=== PATIENT | male | born 1970 | race Caucasian/White ===

== ENCOUNTER 2020-03-18 15:53 | Emergency (ER) | payer SELFPAY ==
[2020-03-18 15:57] VITALS: BP 130/84; PULSE 71; RESP 20; TEMP 36.7; O2SAT 98; BMI 21.5
--- NOTE | 2020-03-18 16:28 | ED_ITS ---
HPI - Skin/Abscess/Foreign Bdy General: Chief complaint: Skin/Abscess/Foreign Body Stated complaint: foot pain Time Seen by Provider: 03/18/20 16:25 History of Present Illness: HPI narrative: Patient is a 50-year-old male who comes to the ED with skin lesion on right foot. Patient says it started off as very itchy skin on the right foot approximately 2 weeks ago. Now he is having warmth, redness and tenderness over the skin on the right foot. Denies any fevers chills, nausea/vomiting, abdominal pain, bladder or bowel symptoms. Associated symptoms: Deny chills, fever(s), nausea or vomiting Review of Systems Const: Denies: fever(s), chills or fatigue Eyes: Denies: change in vision or eye discomfort ENMT: Denies: throat pain, odynophagia, nasal discharge or nasal congestion Card: Denies: chest pain, palpitations, edema, swelling of feet/ankles, dyspnea on exertion or orthopnea Resp: Denies: dyspnea, productive cough or non-productive cough GI: Denies: abdominal pain, nausea, vomiting, diarrhea, constipation or h ematochezia : Denies: flank pain, difficulty urinating, dysuria or hematuria Musc: Denies: neck pain, back pain or extremity swelling Skin/Breast: Reports: new lesions (Right foot lesion); Denies: rash Neuro: Denies: headache(s), numbness in extremities or weakness in extremities Physical Exam Const: COMMON NORMALS: no acute distress and patient oriented x3 GENERAL APPEARANCE: cooperative and comfortable HENMT: COMMON NORMALS: normocephalic HEAD & SCALP: normocephalic MOUTH: Normal oral and palatal mucosa present THROAT: posterior oropharynx normal and uvula midline Neck/C-Spine: COMMON NORMALS: supple GENERAL: Yes normal visual inspection Resp: COMMON NORMALS: normal respiratory effort, No retractions, No use of accessory muscles and clear to auscultation bilaterally AUSCULTATION: clear to auscultation bilaterally Cardio: COMMON NORMALS: regular rate, regular rhythm, S1 normal heart sound present, S2 normal heart sound present, No gallops present (Cardio), No clicks present (Cardio), No murmurs present (Cardio) and Peripheral pulses 2+ throughout RATE: regular rate RHYTHM: regular rhythm HEART SOUNDS: S1 normal heart sound present and S2 normal heart sound present PERIPHERAL PULSES: Peripheral pulses 2+ throughout GI: COMMON NORMALS: Normal to inspection, nondistended, normoactive bowel sounds present, Soft to palpation, non-tender and no masses PALPATION: Yes Soft to palpation : COMMON NORMALS: Yes no CVA tenderness BLADDER/KIDNEY EXAM: Yes no CVA tenderness Back/Pelvis: COMMON NORMALS: no CVA tenderness Extremity: COMMON NORMALS: no pedal edema GENERAL: Yes normal exam except as noted RIGHT LOWER EXTREMITY: Yes foot & digits Right foot and digits: Yes inspection (Patient has pruritic and erythematous lesion on right foot. Some parts of the rash have warmth and tenderness to palpation.) Neuro: COMMON NORMALS: patient oriented x3 and moves all extremities Skin: NARRATIVE SKIN EXAM: Patient has pruritic and erythematous lesion on right foot. Some parts of the rash have warmth and tenderness to palpation. No palpable abscess or visible drainage. Rash/lesion appears to have some contact dermatitis along with cellulitis present. Course Vital Signs: Vital signs: Vital Signs Temperature 98.0 F 03/18/20 15:57 Pulse Rate 68 03/18/20 17:20 Respiratory Rate 14 03/18/20 17:20 Blood Pressure 132/88 03/18/20 17:20 Pulse Oximetry 99 03/18/20 17:20 MDM - Skin/Abscess/Foreign Bdy MDM Narrative: Medical decision making narrative: Patient is a 50-year-old male who comes to the ED with rash/lesion on right foot. Exam showed a pruritic contact dermatitis rash with some erythema, warmth and tenderness as well, suggestive of cellulitis present. Patient diagnosed with cellulitis and contact dermatitis. He was discharged and given a prescription for Bactrim and Medrol Dosepak. He was told to follow-up with his PCP in 5 to 7 days for reevaluation. Return to ED if symptoms worsen. Patient understood and agreed with plan. Discharge Plan Discharge Patient Disposition: Home Clinical Impression: Cellulitis Qualifiers: Site of cellulitis: extremity Site of cellulitis of extremity: lower extremity Laterality: right Qualified Code(s): L03.115 - Cellulitis of right lower limb Contact dermatitis Qualifiers: Contact dermatitis type: unspecified Contact dermatitis trigger: unspecified trigger Qualified Code(s): L25.9 - Unspecified contact dermatitis, unspecified cause Condition: Stable Prescriptions: New Bactrim DS 800-160 mg tablet 1 tab PO BID 7 Days Qty: 14 RF: 0 Medrol (Palomo) 4 mg tablets,dose pack See Rx Instructions .ROUTE .COMPLEX Qty: 21 RF: 0 Discharge Orders: Discharge Order (Routine); Ordered 03/18/20 Ordered By: Umesh Curiel Referrals: Krista Rodriguez DO [Primary Care Provider] - Discharge Diet: Regular Discharge Activity: Resume usual activity Patient Instructions: Contact Dermatitis (ED), Cellulitis (ED) Activity Restrictions/Additional Instructions: Follow-up with medical provider as directed in 7 days. Take medications as prescribed. Return to the ER or your medical provider if condition worsens. Please read and understand discharge instructions. If any questions, please ask. Discharge Date/Time: 03/18/20 17:20 Coding Level of Care Code ED Oracle Applications Developer for Aleks Cleary Exam Comprehensive
[2020-03-18] MEDS: sulfamethoxazole-trimeth DS 160-800 mg Tablet 1 TAB PO (17:17)
[2020-03-18] MEDS: predniSONE 20 mg Tablet 60 MG PO (17:17)
[2020-03-18 17:20] VITALS: BP 132/88; PULSE 68; RESP 14; O2SAT 99
== END 2020-03-18 17:20 | disposition home or self-care (01) ==
PROVIDERS: Emergency Provider Physician Assistant; PCP Family Medicine
DX: L03.115 Cellulitis of right lower limb (principal); L25.9 Unspecified contact dermatitis, unspecified cause
CPT/HCPCS: 12345; 99281; 99283; J7512

== ENCOUNTER 2021-05-12 18:36 | Emergency (ER) | payer SELFPAY ==
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
[2021-05-12 18:50] VITALS: BP 132/84; PULSE 80; RESP 16; TEMP 37; O2SAT 97
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
[2021-05-12 19:54] VITALS: BP 142/87; PULSE 72; RESP 14; O2SAT 94
== END 2021-05-12 20:08 | disposition home or self-care (01) ==
PROVIDERS: Emergency Provider Nurse Practitioner Family; PCP Family Medicine
DX: S20.212A Contusion of left front wall of thorax, initial encounter (principal); J98.01 Acute bronchospasm; V89.2XXA Person injured in unspecified motor-vehicle accident, traffic, initial encounter
CPT/HCPCS: 71101; 99282

== ENCOUNTER → 2021-05-28 09:04 | Outpatient (BNVA) | payer OTHER, SELFPAY | PROVIDERS: PCP Family Medicine; Visit Provider Nurse Practitioner Family | DX: Z20.822 Contact with and (suspected) exposure to COVID-19 (principal) | CPT/HCPCS: 87635 ==

== ENCOUNTER → 2021-07-10 10:50 | Outpatient (BNVA) | payer OTHER, SELFPAY | PROVIDERS: PCP Family Medicine; Visit Provider Nurse Practitioner Family | DX: Z20.822 Contact with and (suspected) exposure to COVID-19 (principal) | CPT/HCPCS: 87635 ==

== ENCOUNTER → 2021-09-18 09:41 | Outpatient (BNVA) | payer OTHER, SELFPAY | PROVIDERS: PCP Family Medicine; Visit Provider Nurse Practitioner Family | DX: Z20.822 Contact with and (suspected) exposure to COVID-19 (principal) | CPT/HCPCS: 87635 ==

== ENCOUNTER 2022-03-17 19:48 | Emergency (ER) | payer SELFPAY ==
[2022-03-17 19:57] VITALS: BP 119/73; PULSE 86; RESP 20; TEMP 37; O2SAT 98
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
--- NOTE | 2022-03-17 21:43 | CTR_ITS ---
PROCEDURE INFORMATION: Exam: CT Abdomen And Pelvis With Contrast Exam date and time: 03/17/2022 9:58 PM Age: 52 years old Clinical indication: Prior surgery; Surgery type: RT hip; Patient HX: C/O fever with back pain and increased urinary output. ; Additional info: Abd pain TECHNIQUE: Imaging protocol: Computed tomography of the abdomen and pelvis with contrast. Radiation optimization: All CT scans at this facility use at least one of these dose optimization techniques: automated exposure control; mA and/or kV adjustment per patient size (includes targeted exams where dose is matched to clinical indication); or iterative reconstruction. Contrast material: OMNI 350; Contrast volume: 95 ml; Contrast route: INTRAVENOUS (IV); COMPARISON: CT Abdomen/Pelvis Renal [id number] 09/30/2018 2:14 AM RADIATION DOSE METRICS: Total DLP (mGy-cm): 792.16 FINDINGS: Liver: Normal. No mass. Gallbladder and bile ducts: Mild dilatation of the intrahepatic biliary tree without dilated common bile duct. Pancreas: Normal. No ductal dilation. Spleen: Calcified splenic granulomas. Adrenal glands: Normal. No mass. Kidneys and ureters: Normal. No hydronephrosis. Stomach and bowel: Unremarkable. No obstruction. No mucosal thickening. Appendix: No evidence of appendicitis. Intraperitoneal space: Unremarkable. No free air. No significant fluid collection. Vasculature: Calcification of the abdominal aorta and/or iliac arteries consistent with atherosclerotic vessel disease. Lymph nodes: Unremarkable. No enlarged lymph nodes. Urinary bladder: Unremarkable as visualized. Reproductive: Unremarkable as visualized. Bones/joints: Metallic fixation of the right hip with metallic artifact. Soft tissues: Unremarkable. CT/CT abdomen pelvis w con* [id number] IMPRESSION: Mild dilatation of the intrahepatic biliary tree without dilated common bile duct.
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
[2022-03-17] MEDS: iohexol 350 mg/mL 100 mL Btl IV (21:57)
[2022-03-17 22:05] LABS: Basophils # 0.1 10^3/uL (0.0-0.1); Basophils % 0.9 %; Eosinophils # 0.2 10^3/uL (0.0-0.8); Eosinophils % 2.2 %; Hematocrit 48.1 % (42.0-52.0); Hemoglobin 15.8 g/dL (11.7-16.6); Lymphocytes # 2.1 10^3/uL (0.8-4.8); Lymphocytes % 22.8 %; Mean Corpuscular HGB Conc 32.8 g/dL (30.0-36.0); Mean Corpuscular Hemoglobin 29.2 pg (28.0-34.0); Mean Corpuscular Volume 88.9 fl (80-94); Mean Platelet Volume 9.5 fL (7.4-10.4); Monocytes # 1.4 10^3/uL (0.2-0.9); Monocytes % 14.5 %; Neutrophils # 5.54 10^3/uL (1.8-7.7); Neutrophils % 59.3 %; Nucleated Red Blood Cells % 0 %; Platelet Count 363 10^3/cmm (130-400); Red Blood Count 5.41 10^6/uL (4.1-5.3); Red Cell Distribution Width 13.2 % (12.1-15.1); White Blood Count 9.4 10^3/uL (4.0-10.0)
[2022-03-17] MEDS: sodium chloride 0.9% 1,000 ML 999 ML IV (22:19)
[2022-03-17 22:31] LABS: Alanine Aminotransferase 14 U/L (0-41); Albumin Level 4.6 g/dL (3.5-5.2); Alkaline Phosphatase 115 IU/L (40-130); Anion Gap 14.1 (5-19); Aspartate Amino Transferase 21 U/L (0-40); Blood Urea Nitrogen 14 mg/dL (6-20); Calcium 9.4 mg/dL (8.5-10.5); Carbon Dioxide 26 mmol/L (22-29); Chloride 102 mmol/L (98-107); Creatinine Clr Calc Pharmacy 122.2005; Glomerular Filtration Rate 118.9 mL/min (90-130); Glucose 68 mg/dL (65-115); Lipase 289 U/L (13-60); Osmolality Calculated 285 mOsm/kg (285-295); Potassium 4.1 mmol/L (3.5-5.1); Sodium 138 mmol/L (136-145); Total Bilirubin 0.3 mg/dL (0.15-1.2); Total Protein 7.6 g/dL (6.6-8.7)
[2022-03-17 22:52] LABS: Add Urine Microscopic? NO; Charge for UA Resulting for Rev
[2022-03-17 23:04] LABS: Bilirubin Urine Neg (Negative); Blood Urine Neg (Negative); Glucose Urine UA Norm (Normal); Ketones Urine Negative (Negative); Leukocyte Esterase Urine Negative (Negative); Nitrate Urine Negative (Negative); Protein Urine Neg (Negative); Urine Appearance Clear (CLEAR); Urine Color Yellow (Yellow); Urobilinogen Urine Norm (Negative); pH Urine 6 (5-7)
[2022-03-17 23:29] VITALS: BP 140/81; PULSE 70; RESP 16; O2SAT 99
[2022-03-17 23:37] VITALS: BP 140/81; PULSE 72; RESP 16; O2SAT 99
--- NOTE | 2022-03-18 07:34 | DCPLANNER ---
Addendum entered by Jerrica Peña 04/17/22 12:22: Patient had a follow up appointment scheduled for 04.15.22 with urology - patient did not attend appointment. Addendum entered by Jerrica Peña 03/24/22 12:17: Patient has a follow up appointment scheduled for Wednesday, April 15, 2022 at 1:15 with Shauna Sullivan at urology. Clinic will call patient with appointment information. Original Note: accounting manager had message to schedule a follow up appointment for patient with urology. accounting manager sent patients information to the front office staff at urology. Patients information will be printed and reviewed. Clinic will call patient with appointment information.
== END 2022-03-17 23:41 | disposition home or self-care (01) ==
PROVIDERS: Nurse Practitioner Family; Emergency Provider Emergency Medicine; PCP Family Medicine
DX: R10.9 Unspecified abdominal pain (principal); R35.0 Frequency of micturition; F17.210 Nicotine dependence, cigarettes, uncomplicated
CPT/HCPCS: 71045; 74177; 80053; 81003; 83690; 85025; 96360; 99285; J7030; Q9967

== ENCOUNTER 2022-12-29 12:26 | Emergency (ER) | payer SELFPAY ==
[2022-12-29 12:47] VITALS: BP 155/90; PULSE 74; RESP 16; TEMP 36.8; O2SAT 100
[2022-12-29 12:51] VITALS: BP 128/84; PULSE 68; RESP 16; O2SAT 97
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
[2022-12-29 14:51] LABS: Basophils # 0.1 10^3/uL (0.0-0.1); Basophils % 1.3 %; Eosinophils # 0.2 10^3/uL (0.0-0.8); Eosinophils % 2.7 %; Hematocrit 50.8 % (42.0-52.0); Hemoglobin 16.4 g/dL (11.7-16.6); Lymphocytes # 2.2 10^3/uL (0.8-4.8); Lymphocytes % 33.9 %; Mean Corpuscular HGB Conc 32.3 g/dL (30.0-36.0); Mean Corpuscular Hemoglobin 28.5 pg (28.0-34.0); Mean Corpuscular Volume 88.2 fl (80-94); Mean Platelet Volume 9.4 fL (7.4-10.4); Monocytes % 16.4 %; Neutrophils % 45.5 %; Nucleated Red Blood Cells % 0 %; Platelet Count 375 10^3/cmm (130-400); Red Blood Count 5.76 10^6/uL (4.1-5.3); White Blood Count 6.4 10^3/uL (4.0-10.0)
[2022-12-29 15:33] LABS: Alanine Aminotransferase 11 U/L (0-41); Albumin Level 4.5 g/dL (3.5-5.2); Alkaline Phosphatase 85 U/L (40-130); Anion Gap 14.4 (5-19); Aspartate Amino Transferase 16 U/L (0-40); Blood Urea Nitrogen 15 mg/dL (6-20); Calcium 9.3 mg/dL (8.5-10.5); Carbon Dioxide 27 mmol/L (22-29); Chloride 103 mmol/L (98-107); Glomerular Filtration Rate 101.9 mL/min (90-130); Glucose 86 mg/dL (65-115); NT Pro B Type Natriuretic Pept 36 pg/mL (0-125); Osmolality Calculated 290 mOsm/kg (285-295); Potassium 4.4 mmol/L (3.5-5.1); Sodium 140 mmol/L (136-145); Total Bilirubin 0.3 mg/dL (0.15-1.2); Total Protein 7.5 g/dL (6.6-8.7)
[2022-12-29 16:00] VITALS: BP 128/84; RESP 18; O2SAT 97
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
--- NOTE | 2022-12-29 16:24 | ECG_ITS ---
[facility] Test Date: 2022-12-29 Pat Name: Todd Puckett Jr Department: Room: Gender: Male Manager Business Intelligence: : 1970 Requested By: Isidro Lerma Order Number: [id number] Jame MD: Veto Kirk M.D. Measurements Intervals [place] Rate: 64 P: 63 SD: 148 QRS: 92 QRSD: 125 T: 67 QT: 401 QTc: 417 Interpretive Statements SINUS RHYTHM BORDERLINE RIGHT AXIS DEVIATION [QRS AXIS > 90] POSSIBLE RIGHT VENTRICULAR CONDUCTION DELAY [RSR (QR) IN V1/V2] No previous ECG available for comparison Electronically Signed On 12-29-2022 16:46:46 CDT by Veto Kirk M.D. [id number]
[2022-12-29 17:12] LABS: D Dimer 0.32 ug/mIFEU (0-0.59)
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
--- NOTE | 2022-12-29 17:15 | CTR_ITS ---
PROCEDURE INFORMATION: Exam: CT Head Without Contrast Exam date and time: 12/29/2022 7:19 PM Age: 52 years old Clinical indication: Pain; Headache not specified; Additional info: Headaches, confusion TECHNIQUE: Imaging protocol: Computed tomography of the head without contrast. Radiation optimization: All CT scans at this facility use at least one of these dose optimization techniques: automated exposure control; mA and/or kV adjustment per patient size (includes targeted exams where dose is matched to clinical indication); or iterative reconstruction. REPORTING DATA: Count of CT and Cardiac NM exams in prior 12 months: This patient has received [address] and 0 known cardiac nuclear medicine studies in the 12 months prior to the current study. COMPARISON: CT head wo con* [id number] 04/01/2019 4:26 AM RADIATION DOSE METRICS: Total DLP (mGy-cm): 250 FINDINGS: Brain: Normal. No hemorrhage. Unremarkable white matter. No mass effect. Cerebral ventricles: No ventriculomegaly. Paranasal sinuses: Visualized sinuses are unremarkable. No fluid levels. Mastoid air cells: Visualized mastoid air cells are well aerated. Bones/joints: Unremarkable. No acute fracture. Soft tissues: Unremarkable. CT/CT head wo con* [id number] IMPRESSION: No acute intracranial abnormality.
[2022-12-29 17:37] LABS: Procalcitonin 0.04 ng/mL (0-0.5)
[2022-12-29 18:12] LABS: Troponin(5th) Baseline 6 ng/L (0-15)
[2022-12-29 18:12] LABS: Troponin 5 2HR Delta 0 ABS# (0-10)
--- NOTE | 2022-12-29 18:24 | ECG_ITS ---
[facility] Test Date: 2022-12-29 Pat Name: Todd Puckett Jr Department: Room: Gender: Male Planer Offbearer: : 1970 Requested By: Isidro Lerma Order Number: [id number] Jame MD: Veto Kirk M.D. Measurements Intervals [place] Rate: 66 P: 66 [place]: 136 QRS: 93 QRSD: 122 T: 71 QT: 394 QTc: 415 Interpretive Statements SINUS RHYTHM WITH SINUS ARRHYTHMIA BORDERLINE RIGHT AXIS DEVIATION [QRS AXIS > 90] POSSIBLE RIGHT VENTRICULAR CONDUCTION DELAY [RSR (QR) IN V1/V2] Compared to ECG 12/29/2022 16:39:30 No significant changes Electronically Signed On 12-30-2022 7:19:01 CDT by Veto Kirk M.D. [email or web address]/[id number]
[2022-12-29] MEDS: iohexol 350 mg/mL 500 mL Btl (per mL) IV (19:42)
[2022-12-29] MEDS: predniSONE 20 mg Tablet 40 MG PO (20:47)
[2022-12-29] MEDS: doxycycline 100 mg Tablet PO (20:47)
[2022-12-29 20:52] VITALS: BP 128/84; PULSE 68; RESP 18; TEMP 36.8; O2SAT 97
--- NOTE | 2022-12-30 08:41 | DCPLANNER ---
Addendum entered by Jerrica Peña 03/26/23 10:01: Patient had a follow up appointment scheduled with pulmonololgy - patient did attend appointment Addendum entered by Jerrica Peña 01/10/23 06:32: Patient has a follow up appointment scheduled for Wednesday, March 22, 2023 at 3:[address] Meyer to [facility]. Addendum entered by Jerrica Peña 01/06/23 14:38: sponsorship manager received the following message from [facility] regarding followup appointment: Attempted to call pt to schedule appt nvm On Wed 3:32p January 01, 2023 Kellee Leblanc (Covering For: [facility] Front Office) Wrote To: [facility] Front Office On Wed 2:38p January 01, 2023 Margarita Bruno (Covering For: Heart Care Front Office) Wrote To: [facility] Front Office Attempted to call pt to schedule appt nvm Original Note: sponsorship manager had message to schedule a follow up appointment for patient with pulmonology. sponsorship manager sent patients information to the front office staff at [facility]. Patients information will be printed and reviewed. Clinic will call patient with appointment information.
--- NOTE | 2022-12-30 10:17 | DCPLANNER ---
Addendum entered by Jerrica Peña 12/30/22 10:24: district manager postal service called patient to confirm that patient wanted the tests ordered and to confirm who patient sees for primary care, to see where to send results to. district manager postal service called phone number [phone], casey saw operator unable to speak with patient at this time, and unable to leave a voicemail. The echo and sleep study were not ordered for patient, due to patient not having a primary care physician on file, and casey saw operator not being able to speak with patient about getting established with a primary care physician. Original Note: district manager postal service had message to schedule an outpatient echocardiogram and a sleep study. district manager postal service faxed signed order to centralized scheduling, who will call patient with appointment information.
--- NOTE | 2023-01-07 13:18 | DCPLANNER ---
business excellence manager called patient due to no primary care physician - unable to speak with patient at this time.
== END 2022-12-29 20:53 | disposition home or self-care (01) ==
PROVIDERS: Family Medicine; Emergency Provider Emergency Medicine
DX: J44.1 Chronic obstructive pulmonary disease with (acute) exacerbation (principal); F17.210 Nicotine dependence, cigarettes, uncomplicated
CPT/HCPCS: 36415; 70450; 71045; 71260; 80053; 83880; 84145; 84443; 84484; 85025; 85378; 93005; 99285; J7512; Q9967

== ENCOUNTER 2023-03-16 00:48 | Emergency (ER) | payer SELFPAY ==
[2023-03-16 00:49] VITALS: BP 101/81; PULSE 83; RESP 18; TEMP 37.4; O2SAT 95; BMI 21.5
[2023-03-16 01:08] LABS: Basophils # 0.1 10^3/uL (0.0-0.1); Basophils % 0.8 %; Eosinophils # 0.1 10^3/uL (0.0-0.8); Eosinophils % 0.7 %; Hematocrit 47.4 % (42.0-52.0); Hemoglobin 15.8 g/dL (11.7-16.6); Lymphocytes # 1.2 10^3/uL (0.8-4.8); Lymphocytes % 13.7 %; Mean Corpuscular HGB Conc 33.3 g/dL (30.0-36.0); Mean Corpuscular Hemoglobin 29.2 pg (28.0-34.0); Mean Corpuscular Volume 87.5 fl (80-94); Mean Platelet Volume 9.5 fL (7.4-10.4); Monocytes # 1.6 10^3/uL (0.2-0.9); Monocytes % 17.6 %; Neutrophils # 5.93 10^3/uL (1.8-7.7); Neutrophils % 66.9 %; Nucleated Red Blood Cells % 0 %; Platelet Count 256 10^3/cmm (130-400); Red Blood Count 5.42 10^6/uL (4.1-5.3); Red Cell Distribution Width 13.2 % (12.1-15.1); White Blood Count 8.9 10^3/uL (4.0-10.0)
[2023-03-16 01:13] VITALS: RESP 18
[2023-03-16] MEDS: morphine 4 mg/mL SDV 1 mL IVP (01:13)
[2023-03-16] MEDS: ondansetron 2 mg/ML SDV 2 mL 4 MG IVP (01:14)
--- NOTE | 2023-03-16 01:14 | ED_ITS ---
HPI - Male Genitourinary General: Chief complaint: Urogenital-Male Stated complaint: FLANK PAIN Time Seen by Provider: 03/16/23 00:50 Source: patient Mode of arrival: ambulatory Limitations: no limitations History of Present Illness: 53-year-old male states that bilateral back pain over the last 2 days states he had low-grade fevers to states pain is sharp in nature its worse with movement. Denies any abdominal pain he denies any vomiting or diarrhea. Associated symptoms: Reports nausea; Deny dysuria or vomiting Review of Systems Const: Reports: fever(s) and body aches; Denies: chills or change in appetite ENMT: Denies: throat pain or dental pain Card: Denies: chest pain Resp: Denies: dyspnea GI: Reports: nausea; Denies: abdominal pain, vomiting or diarrhea : Reports: flank pain; Denies: dysuria Musc: Reports: back pain; Denies: neck pain Skin/Breast: Denies: rash Neuro: Denies: headache(s) PFS ED PFSH: Medical History No pertinent past medical history Social History Smoking and tobacco status: current every day smoker cigarettes Physical Exam Const: COMMON NORMALS: no acute distress, patient oriented x3 and healthy appearing HENMT: COMMON NORMALS: normocephalic and atraumatic HEAD & SCALP: normocephalic and atraumatic Eye: COMMON NORMALS: Equal, round and reactive pupils present and EOMs intact bilaterally PUPIL: Yes Equal, round and reactive pupils present Neck/C-Spine: COMMON NORMALS: full ROM and supple Chest: COMMONS NORMALS: normal inspection of the chest and normal palpation of entire chest wall Resp: COMMON NORMALS: normal respiratory effort, No retractions, No use of accessory muscles and clear to auscultation bilaterally AUSCULTATION: clear to auscultation bilaterally Cardio: COMMON NORMALS: regular rate, regular rhythm and No murmurs present (Cardio) RATE: regular rate RHYTHM: regular rhythm GI: COMMON NORMALS: Normal to inspection, nondistended, normoactive bowel sounds present, Soft to palpation, non-tender and no masses PALPATION: Yes Soft to palpation Extremity: COMMON NORMALS: normal to inspection and full ROM Neuro: COMMON NORMALS: patient oriented x3, moves all extremities and no focal motor deficits Psych: COMMON NORMALS: mental status grossly normal, Normal thought process present and cooperative THOUGHT PROCESS: Normal thought process present Skin: COMMON NORMALS: no rashes or lesions noted and no wounds GENERAL SKIN EXAM: no rashes or lesions noted Course Vital Signs: Vital signs: Vital Signs Temperature 99.4 F 03/16/23 00:49 Pulse Rate 83 03/16/23 00:49 Respiratory Rate 18 03/16/23 01:13 Blood Pressure 107/72 03/16/23 01:21 Pulse Oximetry 100 03/16/23 01:21 Oxygen Delivery Me thod Room Air 03/16/23 01:21 MDM - Male Medical Decision Making Patient presents here with back pains likely muscular in nature he has point tenderness left lower back worse with movement his blood work urinalysis all here is normal his abdominal exam is benign no signs of pyelonephritis or acute surgical abdomen he is stable for discharge we will place him on pain meds along with muscle relaxant he is to follow-up with PCP and return if worsening Medical Records I reviewed the patient's medical records. Lab Data I reviewed the patient's lab results. 03/16/23 01:04 03/16/23 01:04 Laboratory Results WBC 8.9 10^3/uL (4.0-10.0) 03/16/23 01:04 RBC 5.42 10^6/uL (4.1-5.3) H 03/16/23 01:04 Hgb 15.8 g/dL (11.7-16.6) 03/16/23 01:04 Hct 47.4 % (42.0-52.0) 03/16/23 01:04 MCV 87.5 fl (80-94) 03/16/23 01:04 MCH 29.2 pg (28.0-34.0) 03/16/23 01:04 MCHC 33.3 g/dL (30.0-36.0) 03/16/23 01:04 RDW 13.2 % (12.1-15.1) 03/16/23 01:04 Plt Count 256 10^3/cmm (130-400) 03/16/23 01:04 MPV 9.5 fL (7.4-10.4) 03/16/23 01:04 Neut % (Auto) 66.9 % 03/16/23 01:04 Lymph % (Auto) 13.7 % 03/16/23 01:04 [place] % (Auto) 17.6 % 03/16/23 01:04 Eos % (Auto) 0.7 % 03/16/23 01:04 Baso % (Auto) 0.8 % 03/16/23 01:04 Neut # (Auto) 5.93 10^3/uL (1.8-7.7) 03/16/23 01:04 Lymph # (Auto) 1.2 10^3/uL (0.8-4.8) 03/16/23 01:04 [place] # (Auto) 1.6 10^3/uL (0.2-0.9) H 03/16/23 01:04 Eos # (Auto) 0.1 10^3/uL (0.0-0.8) 03/16/23 01:04 Baso # (Auto) 0.1 10^3/uL (0.0-0.1) 03/16/23 01:04 Nucleated RBC % (auto) 0 % 03/16/23 01:04 Nucleated RBCs # 0.0 /100WBC 03/16/23 01:04 Sodium 136 mmol/L (136-145) 03/16/23 01:04 Potassium 3.9 mmol/L (3.5-5.1) 03/16/23 01:04 Chloride 100 mmol/L (98-107) 03/16/23 01:04 Carbon Dioxide 24 mmol/L (22-29) 03/16/23 01:04 Anion Gap 15.9 (5-19) 03/16/23 01:04 BUN 8 mg/dL (6-20) 03/16/23 01:04 Creatinine 0.9 mg/dL (0.7-1.2) 03/16/23 01:04 GFR Calculation 88.6 mL/min (90-130) L 03/16/23 01:04 Glucose 115 mg/dL (65-115) 03/16/23 01:04 Calculated Osmolality 281 mOsm/kg (285-295) L 03/16/23 01:04 Calcium 9.0 mg/dL (8.5-10.5) 03/16/23 01:04 Total Bilirubin 0.2 mg/dL (0.15-1.2) 03/16/23 01:04 AST 17 U/L (0-40) 03/16/23 01:04 ALT 13 U/L (0-41) 03/16/23 01:04 Alkaline Phosphatase 86 U/L (40-130) 03/16/23 01:04 Total Protein 7.4 g/dL (6.6-8.7) 03/16/23 01:04 Albumin 4.2 g/dL (3.5-5.2) 03/16/23 01:04 Globulin 3.2 g/dL (1.3-4.6) 03/16/23 01:04 Lipase 176 U/L (13-60) H 03/16/23 01:04 Urine Color Yellow (Yellow) 03/16/23 01:22 Urine Appearance Clear (CLEAR) 03/16/23 01:22 Urine pH 6 (5-7) 03/16/23 01:22 Ur Specific [place] 1.020 (1.005-1.030) 03/16/23 01:22 Urine Protein Trace (Negative) 03/16/23 01:22 Urine Glucose (UA) Norm (Normal) 03/16/23 01:22 Urine Ketones Negative (Negative) 03/16/23 01:22 Urine Blood Neg (Negative) 03/16/23 01:22 Urine Nitrate Negative (Negative) 03/16/23 01:22 Urine Bilirubin Neg (Negative) 03/16/23 01:22 Urine Urobilinogen Neg mg/dL (Negative) 03/16/23 01:22 Ur Leukocyte Esterase Negative (Negative) 03/16/23 01:22 Urine RBC None /hpf (0-2) 03/16/23 01:22 Urine WBC None /hpf (0-5) 03/16/23 01:22 Ur Squamous Epith Cells None /hpf (0-5) 03/16/23 01:22 Amorphous Sediment Not Reportable 03/16/23 01:22 Urine Bacteria Trace /hpf (NONE) 03/16/23 01:22 Urine Mucus 2+ /hpf 03/16/23 01:22 Discharge Plan Discharge Patient Disposition: Home Clinical Impression: Back pain Condition: Stable Prescriptions: New hydrocodone-acetaminophen 5-325 mg tablet 1 tab PO Q6H PRN (Reason: pain) Qty: 8 0RF methocarbamol 750 mg tablet 750 mg PO Q6H PRN (Reason: spasms) Qty: 20 0RF Naprosyn 500 mg tablet 500 mg PO BID PRN (Reason: pain) Qty: 20 0RF No Action albuterol sulfate 90 mcg/actuation HFA aerosol inhaler 2 inh inhalation Q4H PRN (Reason: shortness of breath or wheezing) Qty: 8.5 0RF Discharge Orders: Discharge ED (Routine); Ordered 03/16/23 Ordered By: Margo Khan Discharge Diet: Advance as tolerated Discharge Activity: Resume usual activity Patient Instructions: Back Pain (ED) Coding Level of Care Code ED Farm Management Professor for Aleks Cleary
[2023-03-16 01:21] VITALS: BP 107/72; O2SAT 100
[2023-03-16 01:32] LABS: Alanine Aminotransferase 13 U/L (0-41); Albumin Level 4.2 g/dL (3.5-5.2); Alkaline Phosphatase 86 U/L (40-130); Anion Gap 15.9 (5-19); Aspartate Amino Transferase 17 U/L (0-40); Blood Urea Nitrogen 8 mg/dL (6-20); Carbon Dioxide 24 mmol/L (22-29); Chloride 100 mmol/L (98-107); Globulin 3.2 g/dL (1.3-4.6); Glomerular Filtration Rate 88.6 mL/min (90-130); Glucose 115 mg/dL (65-115); Lipase 176 U/L (13-60); Osmolality Calculated 281 mOsm/kg (285-295); Potassium 3.9 mmol/L (3.5-5.1); Sodium 136 mmol/L (136-145); Total Bilirubin 0.2 mg/dL (0.15-1.2); Total Protein 7.4 g/dL (6.6-8.7)
[2023-03-16 01:34] LABS: Urine Appearance Clear (CLEAR); Urine Color Yellow (Yellow)
[2023-03-16 01:35] LABS: Add Urine Culture? No; Add Urine Microscopic? YES; Bacteria Urine TRACE /hpf; Bilirubin Urine Neg (Negative); Blood Urine Neg (Negative); Glucose Urine UA Norm (Normal); Ketones Urine Negative (Negative); Leukocyte Esterase Urine Negative (Negative); Mucus Urine 2+ /hpf; Nitrate Urine Negative (Negative); Protein Urine Trace (Negative); Urobilinogen Urine Neg (Negative); pH Urine 6 (5-7)
[2023-03-16 02:13] VITALS: BP 123/72; PULSE 76; RESP 18; O2SAT 98
== END 2023-03-16 02:14 | disposition home or self-care (01) ==
PROVIDERS: Emergency Provider Emergency Medicine
DX: M54.50 Low back pain, unspecified (principal); F17.210 Nicotine dependence, cigarettes, uncomplicated
CPT/HCPCS: 36415; 80053; 81001; 83690; 85025; 96374; 96375; 99284; J2270; J2405

== ENCOUNTER 2023-03-18 16:29 | Outpatient (CLI) | payer SELFPAY ==
--- NOTE | 2023-03-18 | XR_ITS ---
WS: [id number] EXAMINATION: XR KUB 00003 REASON FOR EXAM: ABDOMEN PAIN COMPARISON: None available. ORDER DATE: 03/18/2023 5:14 PM FINDINGS: There is a nonspecific colonic gas pattern with scattered fecal content and gas. There is no sign of significant small bowel dilation. No pathologic abdominal calcification is seen. Right femoral comp ression screw noted. XR/XR KUB [id number] IMPRESSION: No acute change
[2023-03-18 17:15] LABS: Basophils % 0.6 %; Eosinophils # 0.2 10^3/uL (0.0-0.8); Eosinophils % 2.8 %; Hematocrit 47.7 % (42.0-52.0); Hemoglobin 15.7 g/dL (11.7-16.6); Lymphocytes # 1.1 10^3/uL (0.8-4.8); Lymphocytes % 15.2 %; Mean Corpuscular HGB Conc 32.9 g/dL (30.0-36.0); Mean Corpuscular Hemoglobin 28.8 pg (28.0-34.0); Mean Corpuscular Volume 87.4 fl (80-94); Mean Platelet Volume 9.8 fL (7.4-10.4); Monocytes # 1.4 10^3/uL (0.2-0.9); Monocytes % 19.6 %; Neutrophils # 4.45 10^3/uL (1.8-7.7); Neutrophils % 61.5 %; Nucleated Red Blood Cells % 0 %; Platelet Count 247 10^3/cmm (130-400); Red Blood Count 5.46 10^6/uL (4.1-5.3); Red Cell Distribution Width 13.1 % (12.1-15.1); White Blood Count 7.2 10^3/uL (4.0-10.0)
[2023-03-18 17:44] LABS: Alanine Aminotransferase 16 U/L (0-41); Alkaline Phosphatase 83 U/L (40-130); Amylase 84 U/L (28-100); Aspartate Amino Transferase 20 U/L (0-40); Blood Urea Nitrogen 14 mg/dL (6-20); Calcium 8.6 mg/dL (8.5-10.5); Carbon Dioxide 24 mmol/L (22-29); Chloride 101 mmol/L (98-107); Globulin 3.5 g/dL (1.3-4.6); Glomerular Filtration Rate 118.4 mL/min (90-130); Glucose 99 mg/dL (65-115); Lipase 63 U/L (13-60); Osmolality Calculated 283 mOsm/kg (285-295); Sodium 136 mmol/L (136-145); Total Bilirubin 0.2 mg/dL (0.15-1.2); Total Protein 7.5 g/dL (6.6-8.7)
[2023-03-24 16:20] LABS: Rocky Mountain IgG NOT DETECTED; Rocky Mountain IgM NOT DETECTED
== END 2023-03-18 16:30 | disposition home or self-care (01) ==
PROVIDERS: PCP Nurse Practitioner Family; Visit Provider Nurse Practitioner Family
DX: R10.9 Unspecified abdominal pain (principal); R50.9 Fever, unspecified; R11.2 Nausea with vomiting, unspecified; R10.2 Pelvic and perineal pain
CPT/HCPCS: 36415; 74018; 80053; 82150; 82248; 83690; 85025; 86757

== ENCOUNTER 2023-04-01 23:24 | Emergency (ER) | payer MEDICAID, SELFPAY ==
--- NOTE | 2023-04-01 23:28 | XRR_ITS ---
PROCEDURE INFORMATION: Exam: XR Chest Exam date and time: 04/02/2023 12:05 AM Age: 53 years old Clinical indication: Left-sided; Prior surgery; Surgery date: 6+ months; Surgery type: Lung lobectomy; Patient HX: C/O left sided chest pain; Additional info: Cp TECHNIQUE: Imaging protocol: Radiologic exam of the chest. Views: 1 view. COMPARISON: CT chest w con* [id number] 12/29/2022 7:24 PM FINDINGS: Lungs: Emphysematous changes. Right lower lobe calcified granulomas. Chronic right apical pleuroparenchymal fibrosis. Pleural spaces: Unremarkable. No pleural effusion. No pneumothorax. Heart/Mediastinum: Unremarkable. No cardiomegaly. Bones/joints: Multiple chronic left rib fractures. Soft tissues: Chronic punctate metallic radiodense foreign bodies again seen over the right upper thorax. XR/XR chest 1V portable [id number] IMPRESSION: 1. Negative for infiltrate. 2. Chronic punctate metallic radiodense foreign bodies again seen over the right upper thorax. 3. Emphysematous changes. 4. Multiple chronic left rib fractures. 5. Right lower lobe calcified granulomas. 6. Chronic right apical pleuroparenchymal fibrosis.
--- NOTE | 2023-04-01 23:33 | ECG_ITS ---
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 Measurements Intervals [place] Rate: 77 P: 56 [place]: 139 QRS: 83 QRSD: 108 T: 71 QT: 363 QTc: 413 Interpretive Statements SINUS RHYTHM INCOMPLETE RIGHT BUNDLE BRANCH BLOCK [90+ ms QRS DURATION, TERMINAL R IN V1/V2, 40+ ms S IN I/aVL/V4/V5/V6] ANTERIOR MYOCARDIAL INFARCTION , AGE INDETERMINATE Compared to ECG 12/29/2022 18:49:24 Incomplete right bundle-branch block now present Myocardial infarct finding now present Sinus arrhythmia no longer present Electronically Signed On 04-02-2023 9:25:14 CDT by Veto Kirk M.D. [email or web address]/store/OM/[id number]
[2023-04-01 23:36] VITALS: BP 147/92; PULSE 82; RESP 20; TEMP 36.5; O2SAT 98; BMI 21.5
--- NOTE | 2023-04-01 23:40 | ECG_ITS ---
[facility] Test Date: 2023-04-01 Pat Name: Todd Puckett Jr Department: Room: Gender: Male Survey Statistician: : 1970 Requested By: Margo Khan Order Number: [id number] Jame MD: Veto Kirk M.D. Measurements Intervals [place] Rate: 79 P: 60 [place]: 128 QRS: 55 QRSD: 114 T: 71 QT: 374 QTc: 431 Interpretive Statements SINUS RHYTHM INCOMPLETE RIGHT BUNDLE BRANCH BLOCK [90+ ms QRS DURATION, TERMINAL R IN V1/V2, 40+ ms S IN I/aVL/V4/V5/V6] ANTERIOR MYOCARDIAL INFARCTION , AGE INDETERMINATE Compared to ECG 04/01/2023 23:33:58 No significant changes Electronically Signed On 04-02-2023 9:24:54 CDT by Veto Kirk M.D. [id number] f
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
[2023-04-01] MEDS: aspirin 81 mg Chew Tablet 324 MG PO (23:47)
[2023-04-01 23:51] LABS: Basophils # 0.1 10^3/uL (0.0-0.1); Basophils % 1.2 %; Eosinophils # 0.3 10^3/uL (0.0-0.8); Eosinophils % 3.3 %; Hematocrit 43.4 % (42.0-52.0); Hemoglobin 14.5 g/dL (11.7-16.6); Lymphocytes # 2.4 10^3/uL (0.8-4.8); Lymphocytes % 27.6 %; Mean Corpuscular HGB Conc 33.4 g/dL (30.0-36.0); Mean Corpuscular Hemoglobin 28.7 pg (28.0-34.0); Mean Corpuscular Volume 85.9 fl (80-94); Mean Platelet Volume 9.1 fL (7.4-10.4); Monocytes # 1.1 10^3/uL (0.2-0.9); Monocytes % 12.7 %; Neutrophils # 4.74 10^3/uL (1.8-7.7); Nucleated Red Blood Cells % 0 %; Platelet Count 430 10^3/cmm (130-400); Red Blood Count 5.05 10^6/uL (4.1-5.3); Red Cell Distribution Width 13.2 % (12.1-15.1); White Blood Count 8.6 10^3/uL (4.0-10.0)
[2023-04-01] MEDS: nitroglycerin 0.4 mg sublingual Tablet SUBLINGUAL (23:51)
[2023-04-02 00:02] LABS: INR 1.01 (0.8-1.2)
[2023-04-02 00:04] LABS: D Dimer 0.52 ug/mIFEU (0-0.59)
[2023-04-02 00:25] VITALS: RESP 18; O2SAT 97
[2023-04-02] MEDS: morphine 4 mg/mL SDV 1 mL IVP (00:25)
[2023-04-02] MEDS: ondansetron 2 mg/ML SDV 2 mL 4 MG IVP (00:25)
[2023-04-02 00:28] VITALS: BP 104/67; PULSE 76; RESP 23; O2SAT 98
[2023-04-02 00:32] LABS: Alanine Aminotransferase 20 U/L (0-41); Albumin Level 4.1 g/dL (3.5-5.2); Alkaline Phosphatase 88 U/L (40-130); Aspartate Amino Transferase 20 U/L (0-40); Blood Urea Nitrogen 14 mg/dL (6-20); Calcium 8.9 mg/dL (8.5-10.5); Carbon Dioxide 25 mmol/L (22-29); Chloride 104 mmol/L (98-107); Globulin 2.5 g/dL (1.3-4.6); Glomerular Filtration Rate 118.4 mL/min (90-130); Glucose 120 mg/dL (65-115); Lipase 34 U/L (13-60); Osmolality Calculated 292 mOsm/kg (285-295); Sodium 140 mmol/L (136-145); Total Bilirubin 0.2 mg/dL (0.15-1.2); Total Protein 6.6 g/dL (6.6-8.7)
[2023-04-02 00:33] LABS: Troponin(5th) Baseline 6 ng/L (0-15)
[2023-04-02 00:37] LABS: Anion Gap 14.9 (5-19); Potassium 3.9 mmol/L (3.5-5.1)
--- NOTE | 2023-04-02 01:28 | ECG_ITS ---
[facility] Test Date: 2023-04-02 Pat Name: Todd Puckett Jr Department: Room: Gender: Male Hydrology Teacher: : 1970 Requested By: Margo Khan Order Number: [id number] Jame MD: Veto Kirk M.D. Measurements Intervals [place] Rate: 62 P: 60 [place]: 146 QRS: 85 QRSD: 109 T: 79 QT: 404 QTc: 412 Interpretive Statements SINUS RHYTHM INCOMPLETE RIGHT BUNDLE BRANCH BLOCK [90+ ms QRS DURATION, TERMINAL R IN V1/V2, 40+ ms S IN I/aVL/V4/V5/V6] POSSIBLE ANTERIOR MYOCARDIAL INFARCTION , OF INDETERMINATE AGE [30 ms Q WAVE IN V3/V4, OR R < 0.2 mV IN V4] Compared to ECG 04/01/2023 23:40:35 No significant changes Electronically Signed On 04-02-2023 9:28:50 CDT by Veto Kirk M.D. [email or web address].Troodon/store/OM/[id number]
[2023-04-02 02:45] LABS: Troponin 5 2HR 6 ng/L (0-15); Troponin 5 2HR Delta 0 ABS# (0-10)
[2023-04-02 02:56] VITALS: BP 107/76; PULSE 61; RESP 21; O2SAT 99
[2023-04-02] MEDS: dexamethasone 10 mg/mL INJ IVP (02:56)
== END 2023-04-02 03:07 | disposition home or self-care (01) ==
PROVIDERS: Emergency Provider Emergency Medicine; PCP Nurse Practitioner Family
DX: R07.9 Chest pain, unspecified (principal); F17.210 Nicotine dependence, cigarettes, uncomplicated
CPT/HCPCS: 36415; 71045; 80053; 83690; 84484; 85025; 85378; 85610; 93005; 96374; 96375; 99285; J1100; J2270; J2405

== ENCOUNTER 2023-07-06 10:16 | Outpatient (CLI) | payer MEDICAID, SELFPAY ==
[2023-07-06 10:42] VITALS: PULSE 84; RESP 18; O2SAT 99
[2023-07-06] MEDS: albuterol 2.5 mg/3 mL Neb INHALATION (10:42)
[2023-07-06 10:46] VITALS: PULSE 88
== END 2023-07-06 10:17 | disposition home or self-care (01) ==
PROVIDERS: PCP Nurse Practitioner Family; Visit Provider Internal Medicine Pulmonary Disease
DX: R06.02 Shortness of breath (principal); Z72.0 Tobacco use; R94.2 Abnormal results of pulmonary function studies
CPT/HCPCS: 94060; 94618; 94726; 94729; J7613

== ENCOUNTER → 2023-09-29 12:56 | Outpatient (BNVA) | payer MEDICAID, SELFPAY | PROVIDERS: PCP Nurse Practitioner Family; Visit Provider Dermatology | DX: L30.9 Dermatitis, unspecified (principal); L57.8 Other skin changes due to chronic exposure to nonionizing radiation | CPT/HCPCS: 99204 ==

== ENCOUNTER 2024-01-12 15:59 | Emergency (ER) | payer MEDICAID, SELFPAY ==
[2024-01-12] VITALS (29 sets, daily range): BP systolic 115–133; BP diastolic 70–92; PULSE 70–75; RESP 16–18; TEMP 36.7; O2SAT 90–99
--- NOTE | 2024-01-12 16:05 | ECG_ITS ---
[facility] Test Date: 2024-01-12 Pat Name: Todd Puckett Department: Room: Gender: Male Rn Ortho: : 1970 Requested By: Margo Khan Order Number: [id number] Jame MD: Tom Lopez M.D. Measurements Intervals [place] Rate: 70 P: 63 [place]: 140 QRS: 88 QRSD: 101 T: 70 QT: 383 QTc: 416 Interpretive Statements SINUS RHYTHM INCOMPLETE RIGHT BUNDLE BRANCH BLOCK [90+ ms QRS DURATION, TERMINAL R IN V1/V2, 40+ ms S IN I/aVL/V4/V5/V6] ST ELEVATION, PROBABLY EARLY REPOLARIZATION [ST ELEVATION WITH NORMALLY INFLECTED T-WAVE] Compared to ECG 04/01/2019 06:51:55 ST (T wave) deviation now present Early repolarization now present Sinus bradycardia no longer present Electronically Signed On 01-12-2024 18:13:55 CDT by Tom Lopez M.D. [email or web address].Ignis [email or web address] [facility] [email or web address]/store/[id number] f
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
--- NOTE | 2024-01-12 17:15 | CTR_ITS ---
PROCEDURE INFORMATION: Exam: CT Head Without Contrast Exam date and time: 01/12/2024 5:53 PM Age: 53 years old Clinical indication: Patient HX: Patient says he feels a little confused and he feels like hes moving all around when hes not. Dizziness; Additional info: Weakness TECHNIQUE: Imaging protocol: Computed tomography of the head without contrast. Radiation optimization: All CT scans at this facility use at least one of these dose optimization techniques: automated exposure control; mA and/or kV adjustment per patient size (includes targeted exams where dose is matched to clinical indication); or iterative reconstruction. COMPARISON: No relevant prior studies available. RADIATION DOSE METRICS: Total DLP (mGy-cm): 1071.78 FINDINGS: Brain: No intracranial hemorrhage or hematoma is seen. No mass effect or shift of midline structures. No findings to indicate territorial or large vessel ischemic infarct. Cerebral ventricles: No significant ventriculomegaly. Paranasal sinuses: Visualized sinuses are unremarkable. No fluid levels. Mastoid air cells: Visualized mastoid air cells are well aerated. Orbital cavities: Previous lens implants likely from prior cataract surgery within the bilateral globes. Bones: Bone windows of the skull show no acute osseous abnormality. Soft tissues: Unremarkable. CT/CT head wo con* [id number] IMPRESSION: No acute intracranial abnormality.
[2024-01-12 17:34] LABS: Basophils # 0.1 10^3/uL (0.0-0.1); Basophils % 1.1 %; Eosinophils # 0.2 10^3/uL (0.0-0.8); Eosinophils % 2.7 %; Hematocrit 47.6 % (37-53); Lymphocytes # 1.9 10^3/uL (0.8-4.8); Lymphocytes % 28.3 %; Mean Corpuscular Hemoglobin 28.6 pg (27-33); Mean Corpuscular Volume 86.7 fl (82-101); Mean Platelet Volume 9.7 fL (7.4-10.4); Monocytes % 14.5 %; Neutrophils % 53.2 %; Nucleated Red Blood Cells % 0 %; Platelet Count 335 10^3/cmm (157-399); Red Blood Count 5.49 10^6/uL (3.85-5.65); Red Cell Distribution Width 12.9 % (12.1-15.1); White Blood Count 6.57 10^3/uL (3.29-11.43)
[2024-01-12] MEDS: sodium chloride 0.9% 1,000 ML 999 ML IV (17:45)
[2024-01-12 17:51] LABS: Troponin(5th) Baseline 7 ng/L (0-15)
[2024-01-12 18:09] LABS: Alanine Aminotransferase 10 U/L (0-41); Albumin Level 4.2 g/dL (3.5-5.2); Alkaline Phosphatase 76 U/L (40-130); Aspartate Amino Transferase 18 U/L (0-40); Blood Urea Nitrogen 11 mg/dL (6-20); Calcium 8.7 mg/dL (8.5-10.5); Carbon Dioxide 25 mmol/L (22-29); Chloride 102 mmol/L (98-107); Creatinine Clr Calc Pharmacy 120.8275; Globulin 2.6 g/dL (1.3-4.6); Glomerular Filtration Rate 118.4 mL/min (90-130); Glucose 85 mg/dL (65-115); Osmolality Calculated 283 mOsm/kg (285-295); Sodium 137 mmol/L (136-145); Total Bilirubin 0.2 mg/dL (0.15-1.2); Total Protein 6.8 g/dL (6.6-8.7)
[2024-01-12 18:12] LABS: Anion Gap 14.3 (5-19); Potassium 4.3 mmol/L (3.5-5.1)
--- NOTE | 2024-01-12 18:19 | ECG_ITS ---
[facility] Test Date: 2024-01-12 Pat Name: Todd Puckett Department: Room: Gender: Male Pharmaceutical Physician: : 1970 Requested By: Margo Khan Order Number: [id number] Jame MD: Veto Kirk M.D. Measurements Intervals [place] Rate: 62 P: 62 [place]: 160 QRS: 82 QRSD: 90 T: 71 QT: 388 QTc: 397 Interpretive Statements SINUS RHYTHM POSSIBLE RIGHT VENTRICULAR CONDUCTION DELAY [RSR (QR) IN V1/V2] EARLY REPOLARIZATION [ST ELEVATION WITH NORMALLY INFLECTED T-WAVE] Compared to ECG 01/12/2024 16:05:29 Incomplete right bundle-branch block no longer present ST (T wave) deviation no longer present Electronically Signed On 01-13-2024 17:17:01 CDT by Veto Kirk M.D. [email or web address] Chocolate [email or web address] [facility].Consensus Point/store/[id number]
--- NOTE | 2024-01-12 19:12 | ECG_ITS ---
[facility] Test Date: 2024-01-12 Pat Name: Todd Puckett Department: Room: Gender: Male Hollock Maker: : 1970 Requested By: Margo Khan Order Number: [id number] Jame MD: Veto Kirk M.D. Measurements Intervals [place] Rate: 59 P: 55 [place]: 154 QRS: 85 QRSD: 104 T: 76 QT: 411 QTc: 408 Interpretive Statements SINUS BRADYCARDIA POSSIBLE RIGHT VENTRICULAR CONDUCTION DELAY [RSR (QR) IN V1/V2] ST ELEVATION, PROBABLY EARLY REPOLARIZATION [ST ELEVATION WITH NORMALLY INFLECTED T-WAVE] Compared to ECG 01/12/2024 18:19:24 ST (T wave) deviation now present Sinus rhythm no longer present Electronically Signed On 01-13-2024 17:16:55 CDT by Veto Kirk M.D. [id number]
--- NOTE | 2024-01-13 07:10 | DCPLANNER ---
message sent to cardio for er f/u
== END 2024-01-12 20:19 | disposition home or self-care (01) ==
PROVIDERS: Emergency Provider Emergency Medicine; PCP Nurse Practitioner Family
DX: R07.9 Chest pain, unspecified (principal); F17.210 Nicotine dependence, cigarettes, uncomplicated
CPT/HCPCS: 70450; 71045; 80053; 84484; 85025; 93005; 99285; J7030

== ENCOUNTER 2024-02-11 12:02 | Outpatient (CLI) | payer MEDICAID, SELFPAY ==
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
== END 2024-02-11 12:03 | disposition home or self-care (01) ==
PROVIDERS: PCP Nurse Practitioner Family; Visit Provider Family Medicine
DX: Z12.2 Encounter for screening for malignant neoplasm of respiratory organs (principal); F17.200 Nicotine dependence, unspecified, uncomplicated; R91.8 Other nonspecific abnormal finding of lung field; J43.8 Other emphysema; J84.10 Pulmonary fibrosis, unspecified; Z87.828 Personal history of other (healed) physical injury and trauma
CPT/HCPCS: 71271

== ENCOUNTER 2024-04-04 13:30 | Outpatient (CLI) | payer MEDICAID, SELFPAY ==
[2024-04-04 13:44] VITALS: PULSE 74; RESP 18; O2SAT 99
[2024-04-04 13:48] VITALS: PULSE 72
[2024-04-04] MEDS: albuterol 2.5 mg/3 mL Neb INHALATION (13:51)
== END 2024-04-04 13:31 | disposition home or self-care (01) ==
PROVIDERS: PCP Nurse Practitioner Family; Visit Provider Family Medicine
DX: R06.00 Dyspnea, unspecified (principal)
CPT/HCPCS: 94060; 94729; J7613

== ENCOUNTER 2024-04-16 16:39 | Emergency (ER) | payer MEDICAID, SELFPAY ==
--- NOTE | 2024-04-16 16:42 | USR_ITS ---
PROCEDURE INFORMATION: Exam: US Scrotum Exam date and time: 04/16/2024 5:22 PM Age: 54 years old Clinical indication: Scrotum pain; Additional info: Right testicle pain TECHNIQUE: Imaging protocol: Real-time ultrasound of the scrotum and contents with color Doppler and image documentation. COMPARISON: CT abdomen pelvis w con* [id number] 03/17/2022 9:58 PM FINDINGS: Right testicle: Normal. No mass. Normal color Doppler and arterial waveforms. No torsion. Left testicle: Normal. No mass. Normal color Doppler and arterial waveforms. No torsion. Epididymides: Normal. Scrotum/soft tissues: Small bilateral hydroceles. US/US scrotum [id number] IMPRESSION: Small bilateral hydroceles.
[2024-04-16 16:48] VITALS: BP 118/75; PULSE 65; RESP 17; TEMP 36.6; O2SAT 100
[2024-04-16 18:54] LABS: Basophils # 0.1 10^3/uL (0.0-0.1); Basophils % 1.1 %; Eosinophils # 0.2 10^3/uL (0.0-0.8); Eosinophils % 2.3 %; Hematocrit 49.4 % (37-53); Lymphocytes % 30.1 %; Mean Corpuscular HGB Conc 32.4 g/dL (30-55); Mean Corpuscular Hemoglobin 28.5 pg (27-33); Mean Corpuscular Volume 88.1 fl (82-101); Mean Platelet Volume 9.2 fL (7.4-10.4); Monocytes # 0.8 10^3/uL (0.2-0.9); Monocytes % 12.4 %; Neutrophils # 3.54 10^3/uL (1.8-7.7); Neutrophils % 53.9 %; Nucleated Red Blood Cells % 0 %; Platelet Count 372 10^3/cmm (157-399); Red Blood Count 5.61 10^6/uL (3.85-5.65); Red Cell Distribution Width 12.9 % (12.1-15.1); White Blood Count 6.55 10^3/uL (3.29-11.43)
[2024-04-16 18:57] LABS: Alanine Aminotransferase 11 U/L (0-41); Albumin Level 4.7 g/dL (3.5-5.2); Alkaline Phosphatase 89 U/L (40-130); Aspartate Amino Transferase 22 U/L (0-40); Blood Urea Nitrogen 11 mg/dL (6-20); Calcium 9.2 mg/dL (8.5-10.5); Carbon Dioxide 26 mmol/L (22-29); Chloride 98 mmol/L (98-107); Glomerular Filtration Rate 88.3 mL/min (90-130); Glucose 142 mg/dL (65-115); Osmolality Calculated 282 mOsm/kg (285-295); Sodium 135 mmol/L (136-145); Total Bilirubin 0.4 mg/dL (0.15-1.2); Total Protein 7.7 g/dL (6.6-8.7)
[2024-04-16 19:13] VITALS: BP 153/87; PULSE 63; RESP 16; O2SAT 100
[2024-04-16 19:17] LABS: Charge for UA Resulting for Rev
[2024-04-16 19:20] LABS: Bilirubin Urine Negative (Negative); Blood Urine Negative (Negative); Glucose Urine UA Negative (Normal); Ketones Urine Trace (Negative); Leukocyte Esterase Urine Negative (Negative); Nitrate Urine Negative (Negative); Protein Urine Negative (Negative); Specific Gravity, Urine 1.016 (1.005-1.030); Urine Appearance Clear (CLEAR); Urine Color Yellow (Yellow)
[2024-04-16 19:22] LABS: Bacteria Urine None Seen /hpf; Hyaline Casts Urine 0-4 /lpf; RBC Urine 0-2 /hpf (0-2); Squamous Epithelial Cell Urine 0-5 /hpf (0-5); WBC Urine 0-5 /hpf (0-5)
[2024-04-16 19:30] VITALS: BP 161/123; PULSE 72; RESP 16; O2SAT 100
[2024-04-16] MEDS: HYDROmorphone 1 mg/mL INJ 1 mL IM (20:01)
[2024-04-16] MEDS: ketorolac 60 mg/2 mL INJ IM (20:01)
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
[2024-04-16 20:27] VITALS: BP 161/123; PULSE 85; RESP 16; O2SAT 99
== END 2024-04-16 20:33 | disposition home or self-care (01) ==
PROVIDERS: Nurse Practitioner Family; Emergency Provider Emergency Medicine; PCP Nurse Practitioner Family
DX: N50.811 Right testicular pain (principal); F17.210 Nicotine dependence, cigarettes, uncomplicated
CPT/HCPCS: 36415; 76870; 80053; 81003; 81015; 85025; 96372; 99284; J1170; J1885

== ENCOUNTER → 2024-09-05 10:03 | Outpatient (BNVA) | payer MEDICAID, SELFPAY | PROVIDERS: PCP Nurse Practitioner Family | DX: M54.50 Low back pain, unspecified (principal); R50.9 Fever, unspecified; J40 Bronchitis, not specified as acute or chronic | CPT/HCPCS: 81000; 87400 ==

== ENCOUNTER 2024-12-31 18:23 | Emergency (ER) | payer MEDICAID, SELFPAY ==
[2024-12-31 18:57] VITALS: BP 131/87; PULSE 69; TEMP 37; O2SAT 100
[2024-12-31] MEDS: fluorescein 1 mg Strip EYE-LEFT (19:50)
[2024-12-31] MEDS: tetracaine 0.5% Op Soln 4 mL Btl 1 DROP EYE-LEFT (19:50)
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
[2024-12-31 20:11] VITALS: RESP 18
[2024-12-31] MEDS: oxyCODONE-APAP 5-325 mg Tablet 2 TAB PO (20:11)
[2024-12-31 20:36] VITALS: BP 134/88; PULSE 72; O2SAT 100
== END 2024-12-31 20:37 | disposition home or self-care (01) ==
PROVIDERS: Emergency Provider Emergency Medicine
DX: S05.02XA Injury of conjunctiva and corneal abrasion without foreign body, left eye, initial encounter (principal); W22.8XXA Striking against or struck by other objects, initial encounter
CPT/HCPCS: 99283; J9999

== ENCOUNTER 2025-03-21 15:51 | Emergency (ER) | payer MEDICAID, SELFPAY ==
--- NOTE | 2025-03-21 15:52 | XRR_ITS ---
PROCEDURE INFORMATION: Exam: XR Chest Exam date and time: 03/21/2025 4:20 PM Age: 55 years old Clinical indication: Shortness of breath; Additional info: SOB TECHNIQUE: Imaging protocol: Radiologic exam of the chest. Views: 1 view. COMPARISON: CT lung screening [id number] 02/11/2024 12:46 PM FINDINGS: Lungs: Unchanged granulomas in the right lower lung. No pulmonary consolidation. Emphysematous changes. Pleural spaces: Unremarkable. No pleural effusion. No pneumothorax. Heart/Mediastinum: Unremarkable. No cardiomegaly. Diaphragm: Elevation of the right hemidiaphragm. Bones/joints: Unchanged shrapnel projecting over the right chest/shoulder. Multiple remote left-sided rib fractures. XR/XR chest 1V portable [id number] IMPRESSION: No acute thoracic abnormality. Chronic findings as above.
--- NOTE | 2025-03-21 15:53 | XRR_ITS ---
PROCEDURE INFORMATION: Exam: XR Thoracic Spine Exam date and time: 03/21/2025 4:22 PM Age: 55 years old Clinical indication: Injury or trauma; Fall; Blunt trauma (contusions or hematomas); PT fell and hit back on corner of couch arm TECHNIQUE: Imaging protocol: Radiologic exam of the thoracic spine. Views: 3 views. COMPARISON: CR XR chest 1V portable [id number] 03/21/2025 4:20 PM FINDINGS: Bones/joints: Diffuse osseous demineralization. Mild S shaped thoracolumbar scoliosis. No definite vertebral body compression fractures, however exam is limited, particularly lateral view in the lower thoracic spine. Shrapnel projecting over the right shoulder/chest. Remote left-sided rib fractures. Soft tissues: Unremarkable. XR/XR thoracic spine 3V* [id number] IMPRESSION: No definite thoracic vertebral body compression fracture, though exam is limited. If there is high clinical concern for a vertebral fracture, CT is a more sensitive exam.
[2025-03-21 15:58] VITALS: BP 111/77; PULSE 109; RESP 22; TEMP 36.5; O2SAT 98
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
[2025-03-21] MEDS: orphenadrine 30 mg/mL Inj 2 mL 60 MG IM (18:08)
[2025-03-21 18:18] VITALS: BP 148/96; PULSE 74; O2SAT 98
--- OUTSIDE RECORDS SUMMARY | 2025-03-23 02:58 | XMS_ITS | Clinical Summary ---
Author Organization [facility] Address [address] Attn: Epic Prelude ADT [place] [address] Care Team Providers Care Middle School Spanish Teacher Name Role Phone Unavailable Primary Care Provider Unavailabl e Allergies No known active allergies Medications albuterol sulfate 90 mcg/Actuation inhaler Take 2 Puffs by inhalation every 6 hours as needed for Shortness of Breath. Active ibuprofen (MOTRIN) 200 mg tablet Take 800 mg by mouth every 6 hours as needed for Pain, Mild. 0 Active acetaminophen (TYLENOL) 500 mg tablet Take 1,000 mg by mouth every 6 hours as needed. 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 Gender Identity Not on file Sexual Orientation Not on file Last Filed Vital Signs Vital Sign Reading Time Taken Comments Blood Pressure 158/103 05/14/2021 5:58 PM CDT Pulse - - Temperature 38.6 C (101.5 F) 05/14/2021 5:48 PM CDT Respiratory Rate 18 05/14/2021 5:58 PM CDT Oxygen Saturation 96% 05/14/2021 5:58 PM CDT Inhaled Oxygen Concentration - - Weight 58.6 kg (129 lb 3.2 oz) 05/14/2021 3:51 P M CDT Height 177.8 cm (5' 10 ) 05/14/2021 3:51 PM CDT Body Mass Index 18.54 05/14/2021 3:51 PM CDT Plan of Treatment Health Maintenance Due Date Last Done Comments DTAP/TDAP/TD VACCINES (1 - Tdap) 1990 HEPATITIS B VACCINES (1 of 3 - 19+ 3-dose series) 01/22 COLORECTAL SCREENING 02/17/2016 Colorectal Cancer Screening 02/17/2016 FIT-DNA Q 3 years 02/17/2016 FIT/FOBT Q 1 year 02/17/2016 Flex Sig/CT Colonography Q 5 years 02/17/2016 ZOSTER VACCINE (1 of 2) 2021 INFLUENZA VACCINE (#1) 2025
--- OUTSIDE RECORDS SUMMARY | 2025-03-23 02:58 | XMS_ITS | Clinical Summary ---
Author Organization [facility] Address [address] [place] [address] Phone Care Team Providers Care Offshoring Manager Name Role Phone Unavailable Primary Care Provider Unavailabl e Allergies No known active allergies Medications ibuprofen (MOTRIN) 200 mg tablet Take 800 mg by mouth every 6 hours as needed for Pain, Mild. Active acetaminophen (TYLENOL) 500 mg tablet Take 1,000 mg by mouth every 6 hours as needed. Active Social History Tobacco Use Types Packs/Day Years Used Date Smoking Tobacco: Every Day Cigarettes Smokeless Tobacco: Never Alcohol Use Standard Drinks/Week Comments Yes 0 (1 standard drink = 0.6 oz pur e alcohol) varies Sex and Gender Information Value Date Recorded Sex Assigned at Not on file Legal Sex Male 7:34 AM CDT Gender Identity Not on file Sexual Orientation Not on file Last Filed Vital Signs Vital Sign Reading Time Taken Comments Blood Pressure 129/86 11/01/2019 8:50 AM CDT Pulse - - Temperature 36.1 C (96.9 F) 11/01/2019 8:50 AM CDT Respiratory Rate 16 11/01/2019 8:50 AM CDT Oxygen Saturation 98% 11/01/2019 8:50 AM CDT Inhaled Oxygen Concentration - - Weight 72 kg (158 lb 12.8 oz) 11/01/2019 7:43 AM CDT Height 177.8 cm (5' 10 ) 11/01/2019 7:43 AM CDT Body Mass Index 22.79 11/01/2019 7:43 AM CDT Plan of Treatment Health Maintenance Due [...]
== END 2025-03-21 18:20 | disposition home or self-care (01) ==
PROVIDERS: Emergency Provider Physician Assistant
DX: S20.221A Contusion of right back wall of thorax, initial encounter (principal); F17.210 Nicotine dependence, cigarettes, uncomplicated; W19.XXXA Unspecified fall, initial encounter
CPT/HCPCS: 71045; 72072; 96372; 99284; J2360

== ENCOUNTER 2025-04-04 07:22 | Outpatient (CLI) | payer MEDICAID, SELFPAY ==
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
== END 2025-04-04 07:23 | disposition home or self-care (01) ==
LOC: RAD 07:23
PROVIDERS: PCP Family Medicine; Visit Provider Family Medicine
DX: Z12.2 Encounter for screening for malignant neoplasm of respiratory organs (principal); Z87.891 Personal history of nicotine dependence; J43.2 Centrilobular emphysema; R91.1 Solitary pulmonary nodule
CPT/HCPCS: 71271

== ENCOUNTER 2025-05-29 10:19 | Day surgery (SDC) | payer MEDICAID, SELFPAY ==
[2025-05-29 10:54] VITALS: BP 114/75; PULSE 58; RESP 18; TEMP 36.1; O2SAT 99
--- NOTE | 2025-05-29 11:00 | ANES.PREANE2 ---
Pre-Anesthetic Assessment Height/Weight: Height 1.78 m Weight 63.503 kg Temp Pulse Resp BP Pulse Ox O2 Del Method 97.0 F L 58 L 18 114/75 99 Room Air 05/29/25 10:54 05/29/25 10:54 05/29/25 10:54 05/29/25 10:54 05/29/25 10:54 05/29/25 10:54 Operation Date: 05/29/25 11:45 Proposed Procedures p Colonoscopy [id number] G0105 Z12.11(Not Applicable) - Kaden Cox MD Familial anesthetic complications: None Last intake: Intake Last Liquid Date 05/28/25 Last Liquid Time 23:30 Last Solid Date 05/27/25 Medications/Allergies Home Medications ?Medication ?Instructions ?Recorded ?Confirmed ?Last Taken ?Type sertraline 50 mg tablet 50 mg PO DAILY 04/25/25 05/29/25 Unknown History Allergies Allergy/AdvReac Type Severity Reaction Status Date / Time No Known Allergies Allergy Verified 05/29/25 10:46 Current Medications Generic Name Dose Route Start Last Admin Trade Name Freq PRN Reason Stop Dose Admin Sodium Chloride 1,000 mls @ 15 mls/hr 05/29/25 10:31 05/29/25 10:41 Sodium Chloride 0.9% IV 05/30/25 10:30 15 mls/hr .Q24H PRN Administration COLONOSCOPY FLUIDS PFSH Anesthesia Medical History Broken femur No pertinent past medical history Surgical History History of lobectomy of lung Social History Smoking and tobacco/nicotine status: current every day tobacco/nicotine user cigarettes Packs smoked per day: 1 Years cigarettes smoked: 37 [ Other cigarette details: Started at age 16]
--- NOTE | 2025-05-29 11:01 | ANES.PREANE2 ---
Pre-Anesthetic Assessment Height/Weight: Height 1.78 m Weight 63.503 kg Temp Pulse Resp BP Pulse Ox O2 Del Method 97.0 F L 58 L 18 114/75 99 Room Air 05/29/25 10:54 05/29/25 10:54 05/29/25 10:54 05/29/25 10:54 05/29/25 10:54 05/29/25 10:54 Operation Date: 05/29/25 11:45 Proposed Procedures p Colonoscopy [id number] G0105 Z12.11(Not Applicable) - Kaden Cox MD Familial anesthetic complications: None Was Beta Epifanio taken within 24 hours: N/A Was Clonidine taken within 24 hours: N/A Last intake: Intake Last Liquid Date 05/28/25 Last Liquid Time 23:30 Last Solid Date 05/27/25 Social Tobacco (Occ. marijuana) and No alcohol 1 pack(s) per day Exam alert, oriented x 3, clear to auscultation bilaterally and regular rate & rhythm Airway Submandibular: within normal limits Cervical ROM: within normal limits Mallampati: Class II Dentition: chipped ( I've got some pretty bad teeth denies anything loose) History/ROS No significant history except as noted and No significant complaints Pulmonary Chronic Obstructive Pulmonary Disease, Cough and Exertional Dyspnea CV/HEM Coronary Artery Disease None reported Hepatic None reported GI Gastroesophageal Reflux Disease (None this morning, usually food related) Metabolic None reported Musc/skel Lower Back Pain and Osteoarthritis/DJD Neuropsych None reported Anesthetic Plan ASA status: 3 Anesthesia: Anesthesia Evaluation, General and MAC Risk of > 500 ml blood loss (7ml/kg in children): No Medications/Allergies Home Medications ?Medication ?Instructions ?Recorded ?Confirmed ?Last Taken ?Type sertraline 50 mg tablet 50 mg PO DAILY 04/25/25 05/29/25 Unknown History Allergies Allergy/AdvReac Type Severity Reaction Status Date / Time No Known Allergies Allergy Verified 05/29/25 10:46 Current Medications Generic Name Dose Route Start Last Admin Trade Name Freq PRN Reason Stop Dose Admin Sodium Chloride 1,000 mls @ 15 mls/hr 05/29/25 10:31 05/29/25 10:41 Sodium Chloride 0.9% IV 05/30/25 10:30 15 mls/hr .Q24H PRN Administration COLONOSCOPY FLUIDS PFSH Anesthesia Medical History Broken femur No pertinent past medical history Surgical History History of lobectomy of lung Social History Smoking and tobacco/nicotine status: current every day tobacco/nicotine user cigarettes Packs smoked per day: 1 Years cigarettes smoked: 37 [ Other cigarette details: Started at age 16]
--- NOTE | 2025-05-29 11:27 | P.HP_ITS ---
Same Day Surgery H&P Indication for Procedure/HPI DATE OF PROCEDURE: May 29, 2025 CHIEF COMPLAINT/INDICATIONFOR SURGICAL PROCEDURE: screening colonoscopy PREOP DIAGNOSIS: screening colonoscopy PLANNED PROCEDURE: Operation Date: 05/29/25 11:45 Proposed Procedures p Colonoscopy [id number] G0105 Z12.11(Not Applicable) - Kaden Cox MD Medications/Allergies* Home Medications ?Medication ?Instructions ?Recorded ?Confirmed ?Type sertraline 50 mg tablet 50 mg PO DAILY 04/25/25 10/0 03/16 History Allergies/Adverse Reactions Allergy/AdvReac Type Severity Reaction Status Date / Time No Known Allergies Allergy Verified 05/29/25 10:46 Current Medications: Generic Name Dose Route Start Last Admin Trade Name Freq PRN Reason Stop Dose Admin Sodium Chloride 1,000 mls @ 15 mls/hr 05/29/25 10:31 05/29/25 10:41 Sodium Chloride 0.9% IV 05/30/25 10:30 15 mls/hr .Q24H PRN Administration COLONOSCOPY FLUIDS Pertinent History/Comorbid Conditions* Medical History (Updated 03/29/25 @ 00:01 by ARMANDO Massey) Broken femur No pertinent past medical history Surgical History (Updated 03/23/23 @ 12:20 by Mello Ballesteros MD) History of lobectomy of lung Social History Smoking and tobacco/nicotine status: current every day tobacco/nicotine user cigarettes Packs smoked per day: 1 Years cigarettes smoked: 37 [ Other cigarette details: Started at age 16] Pertinent Exam Findings alert, oriented x 3, clear to auscultation bilaterally, regular rate & rhythm and procedure specific exam findings abdomen soft, nt, nd Recommendations Risks and benefits of procedure reviewed and Patient/family agree to proceed Surgery/Procedure today Coding Level of Care Code Acute Code for Chg Fwjudson
[2025-05-29 11:56] VITALS: BP 122/94; PULSE 74; RESP 16; TEMP 36.5; O2SAT 100
[2025-05-29 12:06] VITALS: BP 127/86; PULSE 65; RESP 16; O2SAT 100
[2025-05-29 12:16] VITALS: BP 126/93; PULSE 63; RESP 16; O2SAT 99
--- NOTE | 2025-05-29 12:19 | ANE.PACU2 ---
Inpatient post-anesthesia follow up: Airway intact: Yes Vital signs: Temperature 97.7 F Pulse Rate 63 Respiratory Rate 16 Blood Pressure 126/93 Pulse Oximetry 99 Oxygen Delivery Me thod Room Air Oxygen Flow Rate Fraction of Inspir ed Oxygen Hydration adequate: Yes Nausea and vomiting: No Pain level: 1 Mental status: Baseline
== END 2025-05-29 12:19 | disposition home or self-care (01) ==
PROVIDERS: PCP Family Medicine; Visit Provider Student in an Organized Health Care Education/Training Program
PROC: 0DJD8ZZ Inspection of Lower Intestinal Tract, Via Natural or Artificial Opening Endoscopic (ICD-10-PCS; CPT 45378; principal; 2025-05-29 11:45)
DX: Z12.11 Encounter for screening for malignant neoplasm of colon (principal); D12.4 Benign neoplasm of descending colon; K62.1 Rectal polyp; F17.210 Nicotine dependence, cigarettes, uncomplicated; J44.9 Chronic obstructive pulmonary disease, unspecified; I25.10 Atherosclerotic heart disease of native coronary artery without angina pectoris; K21.9 Gastro-esophageal reflux disease without esophagitis
CPT/HCPCS: 45380; 45385; 88305; J2704; J7030